=== PATIENT | female | born 1955 | race Caucasian/White ===

== ENCOUNTER 2016-09-27 19:06 | Emergency (ER) | payer OTHER ==
[~2016-09-27] VITALS: Ht 162.6 cm; Wt 68.5 kg
[~2016-09-27 19:06] MED LIST: ACCUPRIL5 MG PO; ACID REDUCER 1150 MG PO; B COMPLETE1 EACH PO; BENTYL10 MG PO; BENTYL20 MG PO; CALCIUM 500 MG1 EACH PO; CIPRO500 MG PO; DAILY VALUE1 EACH PO; FLAGYL500 MG PO; LEVOFLOXACIN500 MG PO; MEDROL DOSEPAK4 MG PO; METRONIDAZOLE500 MG PO; NASONEX17 GM BOTH NARES; NEXIUM40 MG PO; OMEGA-31000 M1 PO; PROBIOTIC1 EAC2 PO; ULTRAM50 MG PO; VAGIFEM10 MCG VG; VITAMIN D-3 401 EACH PO; ZOFRAN4 MG PO
[2016-09-27 20:18] LABS: HEMATOCRIT 42.3 % (36.0-46.0); MCH 31.9 PG (29.0-34.0); MCV 93.6 FL (83-99); MEAN PLAT.VOLUME 10.7 uM^3 (9.5-12.4); PLATELET COUNT 182 K/uL (156-360); RBC DIS.WIDTH-CV 12.6 % (11.8-14.6); RBC DIS.WIDTH-SD 43.6 % (39-53); RED BLOOD COUNT 4.52 M/uL (3.80-5.20); WHITE BLOOD COUNT 5.8 K/uL (4.1-10.2)
[2016-09-27 20:21] LABS: ADD MIUA? NO; BILIRUBIN NEGATIVE; BLOOD NEGATIVE; COLOR STRAW ((YELLOW)); GLUCOSE (STRIP) NEGATIVE; KETONES NEGATIVE; LEUKOCYTES NEGATIVE; NITRITE NEGATIVE; PROTEIN (STRIP) NEGATIVE; SPECIFIC GRAVITY 1.005 (1.000-1.030); UCUL ADDED? NO; UROBILINOGEN 0.2 MG/DL (0.2-1.0)
[2016-09-27 20:30] LABS: CHLORIDE 106 mEq/L (99-109); POTASSIUM 3.8 mEq/L (3.7-5.4); SODIUM 142 mEq/L (136-147)
[2016-09-27 20:32] LABS: GLUCOSE 84 mg/dL (70-99)
[2016-09-27 20:33] LABS: ANION GAP 10 MEQ/L (2-14)
[2016-09-27 20:34] LABS: TOTAL BILIRUBIN 1.6 mg/dL (0.0-1.0)
[2016-09-27 20:35] LABS: ALKALINE PHOSPHATASE 105 IU/L (3-129)
[2016-09-27 20:36] LABS: GFR ESTIMATE (CALCULATED) > 59 mL/min/
[2016-09-27 20:37] LABS: UREA NITROGEN (BUN) 16 mg/dL (9-23)
[2016-09-27 20:39] LABS: LIPASE 23 U/L (1.0-51.0)
[2016-09-27 21:42] VITALS: BP 154/93
== END 2016-09-27 21:45 | disposition home or self-care (01) ==
LOC: EME 19:06
PROVIDERS: Physician Assistant
DX: K57.30 Diverticulosis of large intestine without perforation or abscess without bleeding (principal); I10 Essential (primary) hypertension; K21.9 Gastro-esophageal reflux disease without esophagitis; Z80.0 Family history of malignant neoplasm of digestive organs; Z88.2 Allergy status to sulfonamides; Z88.6 Allergy status to analgesic agent
CPT/HCPCS: 74176; 80053; 81003; 83690; 85027; 99281; 99284

== ENCOUNTER 2016-12-22 13:22 | Emergency (ER) | payer OTHER ==
[~2016-12-22] VITALS: Ht 162.6 cm; Wt 66.0 kg
[2016-12-22 15:45] LABS: BASOPHIL COUNT 0.1 K/uL (0-0.1); EOSINOPHIL (%) 1.8 % (0-5); EOSINOPHIL COUNT 0.1 K/uL (0-0.3); HEMATOCRIT 43.4 % (36.0-46.0); IMMATURE GRANULOCYTE (%) 0.2 % (0.0-0.7); INSTRUMENT ABS NEUTROPHIL CT 4.2 K/uL; LYMPHOCYTE COUNT 1.2 K/uL (1.0-2.8); MCH 31.5 PG (29.0-34.0); MCHC 33.4 G/DL (30.0-36.0); MCV 94.3 FL (83-99); MEAN PLAT.VOLUME 10.6 uM^3 (9.5-12.4); MONOCYTE (%) 8.6 % (3-12); MONOCYTE COUNT 0.5 K/uL (0-0.8); NEUTROPHIL (%) 68.8 % (45-76); NEUTROPHIL COUNT 4.2 K/uL (1.8-6.4); PLATELET COUNT 158 K/uL (156-360); RBC DIS.WIDTH-CV 12.2 % (11.8-14.6); RBC DIS.WIDTH-SD 42.5 % (39-53); WHITE BLOOD COUNT 6.2 K/uL (4.1-10.2)
[2016-12-22 15:54] LABS: CHLORIDE 104 mEq/L (99-109); POTASSIUM 4.7 mEq/L (3.7-5.4); SODIUM 140 mEq/L (136-147)
[2016-12-22 15:57] LABS: GLUCOSE 96 mg/dL (70-99)
[2016-12-22 15:58] LABS: ANION GAP 10 MEQ/L (2-14)
[2016-12-22 15:59] LABS: TOTAL BILIRUBIN 1.3 mg/dL (0.0-1.0)
[2016-12-22 16:00] LABS: ALKALINE PHOSPHATASE 90 IU/L (3-129); GFR ESTIMATE (CALCULATED) > 59 mL/min/
[2016-12-22 16:01] LABS: UREA NITROGEN (BUN) 14 mg/dL (9-23)
[2016-12-22 16:04] LABS: LIPASE 30 U/L (1.0-51.0)
[2016-12-22 16:07] LABS: TROP-I INTERPRETATION NEGATIVE; TROPONIN-I < 0.01 ng/mL (0.0-0.30)
[2016-12-22 17:27] LABS: ADD MIUA? YES; BILIRUBIN NEGATIVE; BLOOD NEGATIVE; COLOR YELLOW ((YELLOW)); GLUCOSE (STRIP) NEGATIVE; KETONES NEGATIVE; LEUKOCYTES NEGATIVE; NITRITE NEGATIVE; PROTEIN (STRIP) NEGATIVE; SPECIFIC GRAVITY 1.005 (1.000-1.030); UROBILINOGEN 0.2 MG/DL (0.2-1.0)
[2016-12-22 17:37] LABS: BACTERIA NONE SEEN /HPF; CALCIUM OXALATE CRYSTALS 1+ /HPF; EPITHELIAL CELLS NONE SEEN /HPF; MUCUS NONE SEEN /LPF; RED BLOOD CELLS 0-5 /HPF (0-5); WHITE BLOOD CELLS 0-5 /HPF (0-5)
[2016-12-22 18:26] VITALS: BP 123/76
== END 2016-12-22 18:26 | disposition home or self-care (01) ==
LOC: EME 13:22
PROVIDERS: Physician Assistant
DX: R10.11 Right upper quadrant pain (principal); I10 Essential (primary) hypertension; K21.9 Gastro-esophageal reflux disease without esophagitis; F41.9 Anxiety disorder, unspecified; Z80.0 Family history of malignant neoplasm of digestive organs; Z88.2 Allergy status to sulfonamides
CPT/HCPCS: 71020; 74177; 80053; 81003; 83690; 84484; 85025; 93005; 99281; 99284; J7030

== ENCOUNTER → 2017-02-24 | Outpatient (CLI) | payer OTHER | END | disposition home or self-care (01) | LOC: NUC 08:26 | DX: R10.11 Right upper quadrant pain (principal) | CPT/HCPCS: 78227; A9537 ==

== ENCOUNTER 2017-03-24 10:11 | Emergency (ER) | payer OTHER ==
[~2017-03-24] VITALS: Ht 162.6 cm; Wt 66.0 kg
[2017-03-24 10:56] LABS: HEMATOCRIT 45.7 % (36.0-46.0); HEMOGLOBIN 15.5 G/DL (11.9-15.5); MCH 32.5 PG (29.0-34.0); MCHC 33.9 G/DL (30.0-36.0); MCV 95.8 FL (83-99); PLATELET COUNT 182 K/uL (156-360); RBC DIS.WIDTH-CV 12.8 % (11.8-14.6); RBC DIS.WIDTH-SD 45.7 % (39-53); RED BLOOD COUNT 4.77 M/uL (3.80-5.20); WHITE BLOOD COUNT 6.1 K/uL (4.1-10.2)
[2017-03-24 11:21] LABS: ALBUMIN 4.6 G/DL (3.2-4.8); CHLORIDE 102 MEQ/L (99-109); SODIUM 140 MEQ/L (136-147); TOTAL BILIRUBIN 2.4 MG/DL (0.0-1.0)
[2017-03-24 11:27] LABS: ALKALINE PHOSPHATASE 93 IU/L (3-129); ALT (GPT) 20 IU/L (3-49); AST (GOT) 22 IU/L (2-34); CREATININE 0.7 MG/DL (0.6-1.3); GFR ESTIMATE (CALCULATED) > 59 mL/min/; GLUCOSE 93 mg/dL (70-99); TOTAL PROTEIN 7.6 G/DL (6.4-8.3); UREA NITROGEN (BUN) 14 mg/dL (9-23)
[2017-03-24 13:30] LABS: APPEARANCE CLOUDY ((CLEAR)); BILIRUBIN NEGATIVE; BLOOD NEGATIVE; COLOR AMBER ((YELLOW)); GLUCOSE (STRIP) NEGATIVE; KETONES 20; LEUKOCYTES NEGATIVE; NITRITE NEGATIVE; PROTEIN (STRIP) NEGATIVE; SPECIFIC GRAVITY 1.016 (1.000-1.030); UROBILINOGEN 0.2 MG/DL (0.2-1.0)
[2017-03-24 13:49] LABS: DIRECT BILIRUBIN 0.4 mg/dL (0.0-0.3)
[2017-03-24 13:55] LABS: LIPASE 21 U/L (1.0-51.0)
[2017-03-24 14:04] LABS: AMORPHOUS URATES CRYSTALS 3+; BACTERIA 1+ /HPF; EPITHELIAL CELLS 1+ /HPF; MUCUS NONE SEEN /LPF; RED BLOOD CELLS 0-5 /HPF (0-5); UCUL ADDED? NO; WHITE BLOOD CELLS 0-5 /HPF (0-5)
[2017-03-24] MEDS ORDERED: ZOFRAN ODT8 MG PO (14:17)
[2017-03-24] MEDS ORDERED: BENTYL20 MG PO (14:17)
[2017-03-24 14:49] VITALS: BP 133/75
== END 2017-03-24 14:51 | disposition home or self-care (01) ==
LOC: EME 10:11
DX: K57.90 Diverticulosis of intestine, part unspecified, without perforation or abscess without bleeding (principal); E80.7 Disorder of bilirubin metabolism, unspecified; K21.9 Gastro-esophageal reflux disease without esophagitis; I10 Essential (primary) hypertension; F41.9 Anxiety disorder, unspecified; Z88.5 Allergy status to narcotic agent; Z88.2 Allergy status to sulfonamides; Z88.8 Allergy status to other drugs, medicaments and biological substances
CPT/HCPCS: 74177; 80053; 81003; 82248; 83605; 83690; 85027; 87086; J7040

== ENCOUNTER → 2017-04-24 | Outpatient (CLI) | payer OTHER ==
[~2017-04-24] MED LIST changes: +ZOFRAN ODT8 MG PO
== END | disposition home or self-care (01) ==
LOC: NUC 07:00
DX: K30 Functional dyspepsia (principal)
CPT/HCPCS: 78264; A9541

== ENCOUNTER 2017-07-11 18:41 | Emergency (ER) | payer OTHER ==
[~2017-07-11] VITALS: Ht 162.6 cm; Wt 67.5 kg
[2017-07-11 20:00] LABS: APPEARANCE CLEAR ((CLEAR)); BILIRUBIN NEGATIVE; BLOOD NEGATIVE; COLOR STRAW ((YELLOW)); GLUCOSE (STRIP) NEGATIVE; KETONES 5; LEUKOCYTES NEGATIVE; NITRITE NEGATIVE; PROTEIN (STRIP) NEGATIVE; SPECIFIC GRAVITY 1.004 (1.000-1.030); UCUL ADDED? NO; UROBILINOGEN 0.2 MG/DL (0.2-1.0)
[2017-07-11 20:17] LABS: HEMATOCRIT 42.1 % (36.0-46.0); HEMOGLOBIN 14.4 G/DL (11.9-15.5); MCH 32.4 PG (29.0-34.0); MCHC 34.2 G/DL (30.0-36.0); MCV 94.8 FL (83-99); PLATELET COUNT 169 K/uL (156-360); RBC DIS.WIDTH-CV 12.9 % (11.8-14.6); RED BLOOD COUNT 4.44 M/uL (3.80-5.20); WHITE BLOOD COUNT 5.2 K/uL (4.1-10.2)
[2017-07-11 20:55] LABS: ALBUMIN 4.3 g/dL (3.2-4.8)
[2017-07-11 20:56] LABS: CHLORIDE 102 mEq/L (99-109); SODIUM 141 mEq/L (136-147)
[2017-07-11 20:58] LABS: GLUCOSE 88 mg/dL (70-99); TOTAL PROTEIN 7.3 g/dL (6.4-8.3)
[2017-07-11 21:00] LABS: TOTAL BILIRUBIN 1.2 mg/dL (0.0-1.0)
[2017-07-11 21:01] LABS: ALKALINE PHOSPHATASE 104 IU/L (3-129)
[2017-07-11 21:02] LABS: CREATININE 0.7 mg/dL (0.6-1.3); GFR ESTIMATE (CALCULATED) > 59 mL/min/
[2017-07-11 21:03] LABS: AST (GOT) 26 IU/L (2-34); UREA NITROGEN (BUN) 10 mg/dL (9-23)
[2017-07-11 21:04] LABS: ALT (GPT) 26 IU/L (3-49)
[2017-07-11 22:37] LABS: LIPASE 27 U/L (1.0-51.0)
[2017-07-12 02:30] VITALS: BP 151/90
== END 2017-07-12 02:32 | disposition home or self-care (01) ==
LOC: EME 18:41
DX: R10.30 Lower abdominal pain, unspecified (principal); K57.30 Diverticulosis of large intestine without perforation or abscess without bleeding; R14.0 Abdominal distension (gaseous); R11.0 Nausea; M54.5 Low back pain; N20.0 Calculus of kidney; M85.80 Other specified disorders of bone density and structure, unspecified site; I10 Essential (primary) hypertension; Z80.0 Family history of malignant neoplasm of digestive organs
CPT/HCPCS: 74177; 80053; 81003; 83690; 85027; 99281; 99284